=== PATIENT | female | born 1935 | race Caucasian/White ===

== ENCOUNTER 2021-09-19 18:08 | Emergency (ER) | payer MEDICARE ==
[2021-09-19 19:31] LABS: INR 1.05 (0.9-1.2); PROTHROMBIN TIME 13.1 SECONDS (11.8-13.4); PTT 24.4 SECONDS (24.4-34.7)
[2021-09-19 19:32] LABS: ALBUMIN 3.6 g/dL (3.4-5.0); BILIRUBIN - TOTAL 0.5 mg/dL (0.2-1.0); CREATININE 0.89 mg/dL (0.51-0.95); GLOBULIN (CALCULATION) 3.2 g/dL; POTASSIUM 4.1 mmol/L (3.5-5.1); TOTAL PROTEIN 6.8 g/dL (6.4-8.2)
[2021-09-19 19:33] LABS: RBC 4.07 M/uL (4.20-5.40); WBC 9.8 K/uL (4.0-10.5)
[2021-09-19 19:34] LABS: BASOPHIL 0.7 % (0-2); EOSINOPHIL 3.5 % (0-7); HCT 38.1 % (37.0-47.0); HGB 12.9 g/dl (12.5-16.0); LYMPHOCYTE 22.8 % (15-48); MCH 31.7 pg (25.0-31.0); MCHC 33.9 g/dL (32.0-36.0); MCV 93.6 fL (78.0-100.0); MONOCYTE 8.4 % (0-12); MPV 9.1 fL (6.0-9.5); NEUTROPHIL 64.3 % (41-80); PLT 239 K/uL (150-400); RDW 12.8 % (11.5-14.0)
[2021-09-19 19:35] LABS: NRBC 0
[2021-09-19 21:06] LABS: BILIRUBIN NEGATIVE (NEGATIVE); BLOOD NEGATIVE Ery/uL (NEGATIVE); CLARITY CLEAR (CLEAR); COLOR YELLOW (YELLOW); GLUCOSE (U) NORMAL (NORMAL); LEUKOCYTES NEGATIVE Leu/uL (NEGATIVE); NITRITE NEGATIVE (NEGATIVE); PROTEIN NEGATIVE (NEGATIVE); SPECIFIC GRAVITY 1.025 (1.001-1.030); UROBILINOGEN 0.2 mg/dL (0.2-1.0)
[2021-09-19] MEDS ORDERED: PRILOSEC20 MG PO (21:48)
== END 2021-09-19 21:58 | disposition home or self-care (01) ==
LOC: FER 18:08
PROVIDERS: Internal Medicine
DX: R07.89 Other chest pain (principal); R10.13 Epigastric pain; I25.10 Atherosclerotic heart disease of native coronary artery without angina pectoris; I10 Essential (primary) hypertension; Z95.810 Presence of automatic (implantable) cardiac defibrillator; Z79.82 Long term (current) use of aspirin; Z79.899 Other long term (current) drug therapy
CPT/HCPCS: 36415; 71045; 71250; 80053; 81003; 83690; 83880; 84484; 85025; 85610; 85730; J2405